=== PATIENT | male | born 1945 | race Caucasian/White ===

== ENCOUNTER 2020-01-16 05:02 | Day surgery (SDC) | payer OTHER ==
[2020-01-14 12:33] VITALS: BMI 23.0
[2020-01-16 10:22] VITALS: TEMP 97.9
[2020-01-16 10:54] VITALS: BP 115/61; PULSE 55
== END 2020-01-16 11:22 | disposition home or self-care (01) ==
LOC: JASU-ENDO 05:02
PROVIDERS: ATTEND Internal Medicine Gastroenterology
PROC: 0DJD8ZZ Inspection of Lower Intestinal Tract, Via Natural or Artificial Opening Endoscopic (ICD-10-PCS; principal; 2020-01-16 10:00)
DX: Z12.11 Encounter for screening for malignant neoplasm of colon (principal); Z80.0 Family history of malignant neoplasm of digestive organs; K62.89 Other specified diseases of anus and rectum
CPT/HCPCS: 82962

== ENCOUNTER 2021-11-25 04:16 | Day surgery (SDC) | payer OTHER ==
[2021-11-22 08:08] VITALS: BMI 21.5
[2021-11-25 10:21] VITALS: TEMP 97.7
[2021-11-25 12:12] VITALS: PULSE 47
[2021-11-25 12:27] VITALS: BP 169/68
[2021-11-25 13:09] LABS: EOS % 5.3 % (0-4.5); HEMATOCRIT 36.5 % (35.4-49); HEMOGLOBIN 12.4 GM/dL (11.7-16.9); LYMPH % 27.3 % (8-40); MCH 28.9 pg (25.7-33.7); MEAN CELL VOLUME 84.9 fl (80-96); MEAN PLT VOLUME 7.5 fl (7.5-11.1); MONO % 11.9 % (3.8-10.2); NEUT % 54.5 % (42.8-82.8); PLATELET COUNT 185 10^3/uL (134-434); RDW 13.7 % (11.9-15.9); WHITE BLOOD COUNT 5.1 K/mm3 (4.0-10.0)
== END 2021-11-25 13:00 | disposition home or self-care (01) ==
LOC: JASU-ENDO 04:16
PROVIDERS: ATTEND Internal Medicine Gastroenterology
PROC: 0DB78ZX Excision of Stomach, Pylorus, Via Natural or Artificial Opening Endoscopic, Diagnostic (ICD-10-PCS; 2021-11-25)
PROC: 0DB68ZX Excision of Stomach, Via Natural or Artificial Opening Endoscopic, Diagnostic (ICD-10-PCS; 2021-11-25)
PROC: 0DB98ZX Excision of Duodenum, Via Natural or Artificial Opening Endoscopic, Diagnostic (ICD-10-PCS; principal; 2021-11-25 10:15)
DX: D50.9 Iron deficiency anemia, unspecified (principal); K29.80 Duodenitis without bleeding; K29.50 Unspecified chronic gastritis without bleeding; I10 Essential (primary) hypertension; E11.9 Type 2 diabetes mellitus without complications
CPT/HCPCS: 36415; 82941; 82962; 85025; 88305-TC; 88342-TC